=== PATIENT | male | born 2000 | race Hispanic/Latino ===

== ENCOUNTER 2018-10-03 05:00 | Inpatient (IN) | payer SELFPAY ==
[2018-10-03 06:16] LABS: #Basophils 0.1 thou/uL (0.0-0.2); #Eosinphils 0.1 thou/uL (0.0-0.7); #Lymphocytes 1.8 thou/uL (1.20-3.40); #Monocytes 0.6 thou/uL (0.11-0.59); #Neutrophils 7.8 thou/uL (1.40-6.50); %Basophils 0.9 % (0.0-1.0); %Lymphocytes 17.4 % (28.0-48.0); %Monocytes 5.6 % (0.0-4.0); %Neutrophils 75.1 % (31.0-61.0); Hemoglobin 16.7 g/dL (14.0-18.0); Mean Corpuscular HGB CONC 33.6 g/dL (32.0-36.0); Mean Corpuscular Hemoglobin 30.2 pg (25.0-35.0); Mean Corpuscular Volume 90.1 fL (78.0-98.0); Mean Platelet Volume 7.9 fL (7.4-10.4); Platelet Count 217 thou/uL (130-400); RBC Distribution Width 11.6 % (11.5-14.5); Red Blood Cell (RBC) Count 5.52 mill/uL (4.00-5.20); White Blood Cell (WBC) Count 10.3 thou/uL (4.8-10.8)
[2018-10-03 06:33] LABS: ALT (SGPT) 17 U/L (8-55); AST (SGOT) 18 U/L (5-34); Albumin 4.8 g/dL (3.5-5.0); Alcohol Less than 10 mg/dL (Less than 10); Alkaline Phosphatase 91 U/L (Less than 750); Anion Gap 13 mmol/L (10-20); BUN (Urea Nitrogen) 12 mg/dL (8.9-20.6); Bilirubin, Total 0.5 mg/dL (0.2-1.2); Calc. Creatinine Clearance 0 mL/min (70-130); Calcium 9.7 mg/dL (7.8-10.44); Carbon Dioxide 24 mmol/L (22-29); Chloride 103 mmol/L (98-107); Estimated GFR-MDRD Greater than 90; Glucose 100 mg/dL (70-105); Potassium 3.8 mmol/L (3.5-5.1); Protein, Total 7.8 g/dL (6.0-8.3); Sodium 136 mmol/L (136-145)
[2018-10-03 06:50] LABS: Bilirubin Negative (Negative); Blood, Urine Negative (Negative); Clarity CLEAR (Clear); Glucose, Urine (Dipstick) Negative (Negative); Leukocyte Negative (Negative); Nitrite Negative (Negative); Protein, Urine (Dipstick) Trace mg/dL (Neg-Trace); Specific Gravity, Urine 1.025 (1.002-1.036); Urobilinogen 0.2 mg/dL (0.2-1.0); pH, Urine 5.5 (5.0-9.0)
[2018-10-03 07:09] LABS: Amphetamine Not Detected (NotDetected); Barbiturates Screen Not Detected (NotDetected); Benzodiazepine Screen Not Detected (NotDetected); Cocaine Metabolite Screen Not Detected (NotDetected); Medtox Control Line Valid? VALID (VALID); Medtox Reader # READER 4; Methadone Not Detected (NotDetected); Methamphetamine Not Detected (NotDetected); Opiate Screen Not Detected (NotDetected); Oxycodone Screen Not Detected (NotDetected); Phencyclidine (PCP) Not Detected (NotDetected); THC/Cannabinoid Screen Not Detected (NotDetected); Tricyclic Screen Not Detected (NotDetected)
[2018-10-03] MEDS ORDERED: Metoclopramide HCl 10 MG/2 ML VIAL ONE (07:57)
[2018-10-03] MEDS ORDERED: levETIRAcetam In NaCl (Iso-Os) 1,000 MG in Premix Bag 1 BAG IVPB SCH (08:00)
--- NOTE | 2018-10-03 08:36 | CT ---
PRELIMINARY REPORT/[facility]/EMERGENCY AFTER HOURS PROCEDURE: EXAM: CT Head Without Contrast EXAM DATE/TIME: 10/03/2018 5:22 AM CLINICAL HISTORY: 18 years old, male; Pain; Headache; Headache not specified; Patient HX: M18 presents to ed for a poss ible seizure. PT mother reports she found her son on the floor clenched, with 5-10 mins of seizure li ke behavior. Ems reports PT was calm en route, pulse 120 all other vitals stable. PT reports a mild headache, denies any other complaints. PT denies alcohol or drug use. TECHNIQUE: Axial computed tomography images of the head/brain without contrast. COMPARISON: No relevant prior studies available. FINDINGS: Brain: Hydrocephalus with enlargement of lateral ventricles and third ventricle appears chronic; no e vidence of edema or hemorrhage. Fourth ventricle is not dilated. Few thalamic calcifications. Ventricles: See above. Bones/joints: No acute fracture. Sinuses: No acute findings. No significant air-fluid levels. Mastoid air cells: No acute findings. No mastoid effusion. Soft tissues: No acute findings. IMPRESSION: Hydrocephalus described above; recommend clinical correlation and comparison with prior studies if av ailable; further evaluation can be performed with MRI without and with contrast. THIS REPORT CONTAINS FINDINGS THAT MAY BE CRITICAL TO PATIENT CARE. The findings were verbally commun icated via telephone conference with Dr. Aguilar at 6:28 AM CREAMERY WORKER on 10/03/2018. The findings were ack nowledged and understood. Thank you for allowing us to participate in the care of your patient. Dictated and Authenticated by: Ho Gomes MD 10/03/2018 6:41 AM Central Time ([place] & [place]) FINAL REPORT CT BRAIN WITHOUT CONTRAST: Date: 10/03/18 FINDINGS/IMPRESSION: I agree with the preliminary report given by Ramandeep. POS: [facility]
--- NOTE | 2018-10-03 09:04 | PDOC.FM ---
- Subjective Subjective: The patient is a 18YO male with no significant PMH who presented to the ED after having a seizure this morning in his bed. Per the patient the last thing he remembers is being woken up by his mom and having a headache. He says he has never had a seizure before. Per the mom, the patient woke her up from sleeping by letting out a loud scream and when she got to the patient's room she saw that his arms were bent and very stiff and he was clenching his teeth very tightly. She tried to straighten out his arms but could not and she then tried to put her finger in his mouth to keep him from biting his tongue but he bit her finger. She then placed a pencil in his mouth and said he continued shaking for about 15 minutes. Mom said that the patient was unresponsive during the entire 15 minutes and took about another 15 minutes to come back to baseline. Both deny any loss of control of bowels or bladder. The patient endorses having a 7/10 headache that lasted about 1 hour yesterday that went away on its own but was exacerbated by laying down. He said he also noticed that he had a headache when he was woken up by his mother this morning but denies any current headache. He said the headache was the worst one he has ever had in his life and that he felt it in the back of his head. He denied any associated N/V, weakness, numbness, fever or chills. He also denied any blurry vision or vision changes. No FH of seizures or seizure disorders per the patient and mother as well. - Objective Result Diagrams: 10/03/18 06:01 10/03/18 06:01
--- NOTE | 2018-10-03 09:15 | PDOC.FPRHP ---
- History of Present Illness Chief Complaint: new onset seizure History of Present Illness: The patient is a 18YO male with no significant PMH who presented to the ED after having a seizure this morning in his bed. Per the patient the last thing he remembers is being woken up by his mom and having a headache. He says he has never had a seizure before. Per the mom, the patient woke her up from sleeping by letting out a loud scream and when she got to the patient's room she saw that his arms were bent and very stiff and he was clenching his teeth very tightly. She tried to straighten out his arms but could not and she then tried to put her finger in his mouth to keep him from biting his tongue but he bit her finger. She then placed a pencil in his mouth and said he continued shaking for about 15 minutes. Mom said that the patient was unresponsive during the entire 15 minutes and took about another 15 minutes to come back to baseline. Both deny any loss of control of bowels or bladder. The patient endorses having a 7/10 headache that lasted about 1 hour yesterday that went away on its own but was exacerbated by laying down. He said he also noticed that he had a headache when he was woken up by his mother this morning but denies any current headache. He said the headache was the worst one he has ever had in his life and that he felt it in the back of his head. He denied any associated N/V, weakness, numbness, fever or chills. He also denied any blurry vision or vision changes. No FH of seizures or seizure disorders per the patient and mother as well. ED Course: Patient was given Reglan 10mg IVP and 1L of NS. He was also given a loading dose of IV Keppra. - Allergies/Adverse Reactions Allergies Allergy/AdvReac Type Severity Reaction Status Date / Time No Known Allergies Allergy Unverified 10/03/18 07:50 - History PMHx: none PSHx: none FHx: non-contributory Social: Current smoker. Has smoked 1ppd for ~ 8 years. - Review of Systems General: denies: fever/chills, weight/appetite/sleep changes Eyes: denies: eye pain, vision changes ENT: reports: other (no sore throat). denies: nasal congestion Respiratory: denies: cough, shortness of breath Cardiovascular: denies: chest pain, edema Gastrointestinal: denies: nausea, vomiting Genitourinary: denies: incontinence, polyuria Skin: denies: rashes, lesions Musculoskeletal: denies: pain, tenderness Neurological: reports: seizure. denies: numbness, syncope, weakness Psychological: denies: anxiety, depression - Vital signs BP: 119/74 HR: 98 RR: 16 Tmax: 98.2F Pox: 97% on RA Wt: 74.84kg - Physical Exam Constitutional: NAD, awake, alert and oriented (somewhawt drowsy during exam but easily aroused), well developed HEENT: normocephalic and atraumatic, PERRLA, no scleral icterus, grossly normal vision, grossly normal hearing, MMM, oropharynx clear, other (conjuntival injection B/L) Neck: supple, FROM Heart: RRR, normal S1/S2, pulses present, no edema Lungs: CTAB, no respiratory distress, good air movement, no rales/rhonchi, no wheezing Abdomen: bowel sounds present, no masses/distention Musculoskeletal: normal structure, normal tone, ROM grossly normal Neurological: no focal deficit, CN II-XII intact, normal sensation Skin: no rash/lesions, good turgor, no jaundice Heme/Lymphatic: no unusual bruising or bleeding, no purpura Psychiatric: normal mood and affect, good judgment and insight, intact recent and remote memory FMR H&P: Results - Labs Result Diagrams: 10/03/18 06:01 10/03/18 06:01 Lab results: WBC 10.3 thou/uL (4.8-10.8) 10/03/18 06:01 Hgb 16.7 g/dL (14.0-18.0) 10/03/18 06:01 Hct 49.7 % (42.0-52.0) 10/03/18 06:01 MCV 90.1 fL (78.0-98.0) 10/03/18 06:01 Plt Count 217 thou/uL (130-400) 10/03/18 06:01 Neutrophils % 75.1 % (31.0-61.0) H 10/03/18 06:01 Sodium 136 mmol/L (136-145) 10/03/18 06:01 Potassium 3.8 mmol/L (3.5-5.1) 10/03/18 06:01 Chloride 103 mmol/L (98-107) 10/03/18 06:01 Carbon Dioxide 24 mmol/L (22-29) 10/03/18 06:01 BUN 12 mg/dL (8.9-20.6) 10/03/18 06:01 Creatinine 0.77 mg/dL (0.7-1.3) 10/03/18 06:01 Glucose 100 mg/dL (70-105) 10/03/18 06:01 Calcium 9.7 mg/dL (7.8-10.44) 10/03/18 06:01 Total Bilirubin 0.5 mg/dL (0.2-1.2) 10/03/18 06:01 AST 18 U/L (5-34) 10/03/18 06:01 ALT 17 U/L (8-55) 10/03/18 06:01 Alkaline Phosphatase 91 U/L (Less than 750) 10/03/18 06:01 Serum Total Protein 7.8 g/dL (6.0-8.3) 10/03/18 06:01 Albumin 4.8 g/dL (3.5-5.0) 10/03/18 06:01 Urine Ketones Trace mg/dL (Negative) H 10/03/18 06:05 Urine Blood Negative (Negative) 10/03/18 06:05 Urine Nitrite Negative (Negative) 10/03/18 06:05 Ur Leukocyte Esterase Negative (Negative) 10/03/18 06:05 - Radiology Interpretation CT scan - head Status: image reviewed by me, report reviewed by ms FMR H&P: A/P - Problem List (1) New onset seizure Current Visit: Yes Status: Acute Code(s): R56.9 - UNSPECIFIED CONVULSIONS (2) Hydrocephalus Current Visit: Yes Status: Acute Code(s): G91.9 - HYDROCEPHALUS, UNSPECIFIED (3) Tobacco abuse Current Visit: Yes Status: Acute Code(s): Z72.0 - TOBACCO USE - Plan New onset seizures Likely 2/[address]: - Neurosurgery consulted from the ER, recs greatly appreciated. MRI pending per their request. - Prolactin negative at 12. CPK pending. - Will continue starting dose of keppra for seizure prophylaxis with 500mg PO BID. - Will check a Mg & TSH as well to r/o any metabolic derangements that be be contributing to new seizure activity. - Will consult neurology in the AM and get an EEG today as well. - Will admit to stroke for further monitoring. Dispo: Unable to determine LOS at this time due to pending MRI and neurosurgery recs. FMR H&P: Upper Level - Pertinent history 18 yo male here for seizure. Mom reports that she woke up this morning to patient making sounds. When she came to him, he was unresponsive and clenching his hands, arms, and teeth. She put a pencil in his mouth for him to bite on. She thinks this lasted about 15 minutes. 15 minutes after seizures, patient became more conscious and asked what had happened. He says he only remembers waking up at home with a GARG. GARG is in back of head, worst GARG of life, constant. Said this GARG is new and started showing up on Tuesday. Worse when laying down. Denies fever, anorexia, vision changes, n/v, SOB. 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 Fourth ventricle is not dilated. further evaluation can be performed with MRI w/o and w/ contrast - Plan Date/Time: 10/03/18 [id number] IMemo DO, have evaluated this patient and agree with findings/plan as outlined by r d internship resident. Pertinent changes/additions are listed here. #new onset seizures with hydrocephaly seen on CT -Neurosurgery consulted from the ER, recs greatly appreciated -prolactin negative -continue with keppra drip -check Mg, TSH, CK -admit to stroke for further monitoring -MRI pending Addendum - Attending - Attending Attestation Date/Time: 10/03/18 1352 I personally evaluated the patient and discussed the management with Dr. Salazar I agree with the History, Examination, Assessment and Plan documented above with any addition or exceptions noted below- 18 yo male with no significant PMH presented with ew onset of seizure. Mother states that she heard him call out and when she arrived he was on the bed with a generalized tonic-clonic seizure. Seizure lasted about 5-10 minutes per family and he was sleepy afterwards. No bowel or bladder incontinence. Reports that he had a GARG yesterday but it resolved. PMH/PSH/Meds/All reviewed and agree with resident's documentation. Afebrile VSS. Exam repeated by me and agree with resident's findings. CT scan showed hydrocephalus with dilation of lateral and third ventricles. MRI brain - showed marked ventriculomegaly involving 3rd ventricles and lateral ventricles. 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 A/P: 1) New onset seizures- continue keppra; neurology consult. EEG ordered. 2) Cerebral mass - will consult neurosurgery.
[2018-10-03] MEDS ORDERED: Acetaminophen 325 MG TAB PO PRN (09:27)
[2018-10-03] MEDS ORDERED: Ondansetron PF 4 MG/2 ML Vial IVP PRN (09:28)
[2018-10-03] MEDS ORDERED: Ondansetron ODT 4 MG TAB PO PRN (09:28)
[2018-10-03 09:46] VITALS: BMI 22.4
--- NOTE | 2018-10-03 11:40 | MRI ---
BRAIN MRI WITH AND WITHOUT CONTRAST: Date: 10/03/18 COMPARISON: None. HISTORY: Seizure. TECHNIQUE: Multiplanar, multisequence MR imaging of the brain provided with and without contrast. FINDINGS: The diffusion-weighted imaging demonstrates no evidence for acute infarction. There is marked ventriculomegaly involving the lateral ventricles and the third ventricle. The aquedu ct is obliterated and fourth ventricle is of normal caliber. There is a suggestion of a lobulated mas s at the junction of the third and fourth ventricle, which is in the region of the tectum. This is be st seen on sagittal postcontrast image 13 and measures approximately 1.6 x 1.1 cm. In this region, th ere are foci of periventricular calcification on either side of the superior margin of the third vent ricle, as seen on recent CT exam. There is hazy increased T2 signal associated with this lesion, part icularly on the left. The postcontrast imaging demonstrates no significant enhancement. Arterial flow-voids at the axial level of the skull base appear intact on the T2-weighted imaging. The nature of the lesion makes accurate measurement difficult. The lesion measures in the 1.7 cm elizabeth sverse x 1.7 cm craniocaudal x 1.6 cm AP range. IMPRESSION: Marked ventriculomegaly involving the third ventricle and lateral ventricles with a lobulated primari ly nonenhancing mass lesion centered in the region of the tectum with punctate calcifications. The ce rebral aqueduct is obliterated. 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 Neurosurgical consultation advised. CODE T. POS: [facility]
[2018-10-03] MEDS: levETIRAcetam 500 MG TAB PO SCH (20:21)
--- NOTE | 2018-10-04 06:53 | PDOC.FM ---
- Subjective Subjective: NAEO. Patient states he feels well this AM. Denies any headache, N/V, vision changes, weakness, numbness, or seizure activity. - Objective MAR Reviewed: Yes Vital Signs & Weight: Vital Signs (12 hours) Temp Pulse Resp BP Pulse Ox 10/04/18 04:00 98.4 F 87 19 107/61 99 10/04/18 00:00 98.1 F 80 19 124/67 97 10/03/18 20:20 97 10/03/18 20:00 98.9 F 90 18 113/56 L 97 Weight Weight 70.76 kg Result Diagrams: 10/03/18 06:01 10/03/18 06:01 Phys Exam - Physical Examination Constitutional: NAD HEENT: moist MMs Neck: supple, full ROM Respiratory: no wheezing, no rales, no rhonchi, clear to auscultation bilateral Cardiovascular: RRR, no significant murmur Musculoskeletal: no edema Neurological: non-focal, normal sensation, moves all 4 limbs purchasing administrative assistant intact Psychiatric: normal affect, A&O x 3 Skin: no rash, normal turgor Dx/Plan (1) New onset seizure Code(s): R56.9 - UNSPECIFIED CONVULSIONS Status: Acute (2) Hydrocephalus Code(s): G91.9 - HYDROCEPHALUS, UNSPECIFIED Status: Acute (3) Tobacco abuse Code(s): Z72.0 - TOBACCO USE Status: Acute - Plan Plan: New onset seizures Likely 2/[address]: - CT significant for marked hydrocephalus extending all the way down into the 3rd ventricle. MRI showed a lobulated tectal mass impinging on the cerebral aqueduct which explains the hydrocephalus. - Neurosurgery consulted from the ER, recs greatly appreciated. - Will continue keppra 500mg BID for seizure prophylaxis. - Mg, TSH, Prolactin, & CPK all WNLs. - Will consult neurology today. EEG pending. Dispo: Unable to determine at this point as d/c dependent on neurosurgery recs. Addendum - Attending - Attending Attestation Date/Time: 10/04/18 1121 I personally evaluated the patient and discussed the management with Dr. Salazar I agree with the History, Examination, Assessment and Plan documented above with any addition or exceptions noted below- Patient up walking in halls. Denies any complaints. Denies any GARG. No further seizure activity. Afebrile VSS. A/P: 1) New onset seizures- continue keppra. 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 Await further recommendations for possible shunt.
[2018-10-04] MEDS: levETIRAcetam 500 MG TAB PO SCH (08:31)
--- NOTE | 2018-10-04 10:53 | CON ---
DATE OF CONSULTATION: HISTORY OF PRESENT ILLNESS: Mr. Garay is a pleasant 18-year-old gentleman, who was admitted yesterday following new onset seizure and was loaded on Keppra, since then he has had no additional seizure activity according to him and sister at bedside. He reports that he has had severe headaches for several years, but never any seizure activity. Neurosurgery was ultimately consulted as he had a CT scan and now MRI did reveal significant ventriculomegaly in the third and bilateral lateral ventricles. There is also what appears to likely be a lesional mass near the tectum at the interface of the third and fourth ventricles causing obstruction, which is very likely the source of his hydrocephalus. There are some calcifications near this mass, so it is entirely possible this has been present for many, many years and this has been an insidious process over time. In any case, the mass itself does not appear to be an operable lesion, but the patient would benefit significantly from third ventriculostomy. I discussed with him and his family that it would be recommended he visit with Dr. Baltazar, who will be back in town tomorrow. I will discuss with Dr. Merritt, on planning for this evaluation whether that needs to happen inpatient or outpatient. He is stable enough in my opinion that he may be able to proceed home. However, they started EEG monitoring this morning, so we will wait for this to be done. Job ID: [id number]
[2018-10-04 11:53] VITALS: BP 105/54; TEMP 98.7
--- NOTE | 2018-10-04 16:23 | EEG ---
Referring Physician: MARAL VELASQUEZ EEG # [id number] TEST TYPE: ROUTINE PORTABLE INPATIENT REPORT: AN EEG USING THE [employer] TEN-TWENTY SYSTEM OF ELECTRODE PLACEMENT WAS PERFORMED. The waking background is a medium amplitude 9 hertz alpha frequency. There were several bursts of generalized high amplitude dysrhythmic activity seen during the study. None of these were sustained. Photic stimulation and hyperventilation were unremarkable. IMPRESSION: THIS IS AN ABNORMAL STUDY FOR THE FINDINGS OF GENERALIZED DYSRHYTHMIC BURSTS SUGGESTING UNDERLYING EPILEPTIFORM ACTIVITY. Product Marketing Analyst: IRASEMA Laborer [place]: [email or web address]
--- NOTE | 2018-10-06 15:35 | EKG ---
Test Reason : Blood Pressure : / mmHG Vent. Rate : 117 BPM Atrial Rate : 117 BPM P-R Int : 154 ms QRS Dur : 094 ms QT Int : 324 ms P-R-T Axes : 050 081 019 degrees QTc Int : 451 ms Sinus tachycardia Nonspecific T wave abnormality Abnormal ECG Confirmed by CESAR TORRES ([id number]), make up editor JONATAN SALAMANCA ([id number]) on 10/06/2018 3:34:56 PM Referred By: Confirmed By:CESAR TORRES
== END 2018-10-04 15:28 | disposition home or self-care (01) | DRG 57 ==
LOC: ERS 05:00 → 2SE 08:18
PROVIDERS: ADMIT Family Medicine; ATTEND Family Medicine
DX: G91.1 Obstructive hydrocephalus (principal); R56.9 Unspecified convulsions; G93.9 Disorder of brain, unspecified; F17.210 Nicotine dependence, cigarettes, uncomplicated
CPT/HCPCS: 36416; 70450; 70553; 80053; 80306; 80307; 81003; 82550; 83735; 84146; 84443; 85025; 90471; 90686; 93005; 95816; 95819; 96365; 96375; G0008; J1953; J2765

== ENCOUNTER 2018-10-08 23:13 | Emergency (ER) | payer SELFPAY ==
[2018-10-09] MEDS ORDERED: Acetaminophen 500 MG TAB ONE (00:22)
[2018-10-09] MEDS ORDERED: Ketorolac Tromethamine 60 MG/2 ML VIAL ONE (00:22)
== END 2018-10-09 01:55 | disposition home or self-care (01) ==
LOC: ERS 23:13
DX: R51 Headache (principal); F17.210 Nicotine dependence, cigarettes, uncomplicated; Z79.899 Other long term (current) drug therapy; Z71.6 Tobacco abuse counseling
CPT/HCPCS: 96372; 99406; J1885

== ENCOUNTER 2019-09-21 01:44 | Emergency (ER) | payer SELFPAY ==
[2019-09-21] MEDS ORDERED: Acetaminophen 500 MG TAB ONE (02:02)
[2019-09-21 02:54] LABS: #Lymphocytes 0.7 thou/uL (1.20-3.40); #Monocytes 0.5 thou/uL (0.11-0.59); %Basophils 0.4 % (0.0-1.0); %Eosinophils 0.3 % (0.0-10.0); %Lymphocytes 8.2 % (21.0-51.0); %Monocytes 6.3 % (0.0-10.0); %Neutrophils 84.8 % (42.0-75.0); Mean Corpuscular HGB CONC 33.8 g/dL (32.0-36.0); Mean Corpuscular Hemoglobin 29.6 pg (27.0-31.0); Mean Corpuscular Volume 87.6 fL (78.0-98.0); Mean Platelet Volume 7.5 fL (7.4-10.4); Platelet Count 190 thou/uL (130-400); RBC Distribution Width 11.4 % (11.5-14.5); Red Blood Cell (RBC) Count 4.73 mill/uL (4.70-6.10); White Blood Cell (WBC) Count 8.2 thou/uL (4.8-10.8)
[2019-09-21 03:46] LABS: ALT (SGPT) 19 U/L (8-55); AST (SGOT) 19 U/L (5-34); Albumin 4.5 g/dL (3.5-5.0); Alkaline Phosphatase 87 U/L (40-110); Anion Gap 15 mmol/L (10-20); BUN (Urea Nitrogen) 11 mg/dL (8.9-20.6); Bilirubin, Total 0.6 mg/dL (0.2-1.2); Calc. Creatinine Clearance 0 mL/min (70-130); Calcium 9.4 mg/dL (7.8-10.44); Carbon Dioxide 22 mmol/L (22-29); Chloride 103 mmol/L (98-107); Estimated GFR-MDRD Greater than 90; Glucose 104 mg/dL (70-105); Potassium 3.6 mmol/L (3.5-5.1); Protein, Total 7.5 g/dL (6.0-8.3); Sodium 136 mmol/L (136-145)
--- NOTE | 2019-09-21 07:19 | RAD ---
RADIOGRAPH CHEST 1 VIEW: DATE: 09/21/2019 HISTORY: 19-year-old male with fever and chest pain FINDINGS: The visualized lung jones are clear. The cardiomediastinal silhouette and hilar shadows are normal. The lateral costophrenic angles are sharp. The osseous structures appear normal. There is no pneumothorax. IMPRESSION: Negative.
== END 2019-09-21 04:45 | disposition home or self-care (01) ==
LOC: ERS 01:44
DX: J06.9 Acute upper respiratory infection, unspecified (principal); R00.0 Tachycardia, unspecified; G43.909 Migraine, unspecified, not intractable, without status migrainosus; F17.210 Nicotine dependence, cigarettes, uncomplicated
CPT/HCPCS: 36415; 71045; 80053; 83605; 84484; 85025; 87040; 87804; 93005; 94640; 96360; 96361; J7620

== ENCOUNTER 2021-02-02 21:10 | Emergency (ER) | payer SELFPAY ==
[2021-02-02] MEDS ORDERED: Lidocaine 1% PF 5 ML VIAL ONE ×2 (22:31→22:39)
== END 2021-02-03 00:07 | disposition home or self-care (01) ==
LOC: ERS 21:10
DX: S51.811A Laceration without foreign body of right forearm, initial encounter (principal); G43.909 Migraine, unspecified, not intractable, without status migrainosus; F17.210 Nicotine dependence, cigarettes, uncomplicated; W45.8XXA Other foreign body or object entering through skin, initial encounter
CPT/HCPCS: 12004